=== PATIENT | female | born 1995 | race African-American/Black ===

== ENCOUNTER 2024-05-16 10:13 | Emergency (ER) | payer OTHER ==
[~2024-05-16] VITALS: Ht 170.2 cm; Wt 141.0 kg
[2024-05-16 10:28] VITALS: O2SAT 100
[2024-05-16 10:33] VITALS: TEMP 98.7; O2SAT 98
[2024-05-16] MEDS ORDERED: MORPHINE SULFATE 4 MG/ML INJ (FOR IV/IM USE) IV STA (11:22)
[2024-05-16] MEDS ORDERED: ONDANSETRON HCL 4MG/2ML INJ IV STA (11:22)
[2024-05-16] MEDS: SODIUM CHLORIDE 0.9% 1,000 ML IV ONE (11:30)
[2024-05-16 12:34] LABS: BASOPHILS % 0.2 % (0.0-2.0); EOSINOPHILS % 0.8 % (0.0-5.0); HEMATOCRIT. 36.6 % (36.0-48.0); HEMOGLOBIN. 11.7 g/dL (12.0-16.0); LYMPHOCYTES % 21.9 % (20.0-50.0); MEAN CORPUSCULAR HEMOGLOBIN 26.2 pg (28.0-32.0); MEAN CORPUSCULAR HGB CONC 32.1 g/dL (31.0-37.0); MEAN CORPUSCULAR VOLUME 81.7 fL (81.0-99.0); MEAN PLATELET VOLUME 7.6 fl (7.4-10.4); MONOCYTES % 8.3 % (2.0-8.0); NEUTROPHILS % 68.8 % (40.0-76.0); PLATELET 363 x1000/uL (130-400); RED BLOOD CELL COUNT 4.48 mill/uL (4.2-5.4); WHITE BLOOD COUNT 3.6 x1000/uL (4.5-11.0)
[2024-05-16 12:41] LABS: HCG SCREEN NEGATIVE
[2024-05-16 12:42] LABS: CHLORIDE 108 mEq/L (98-107); POTASSIUM 3.9 mEq/L (3.5-5.1); SODIUM 138 mEq/L (136-145)
[2024-05-16 12:43] LABS: CALCIUM 8.4 mg/dL (8.7-10.4); CARBON DIOXIDE 26 mEq/L (21-32)
[2024-05-16 12:48] LABS: CREATININE 0.7 mg/dL (0.6-1.0); GLUCOSE 93 mg/dL (70-105)
[2024-05-16 12:49] LABS: ALANINE AMINOTRANSFERASE 39 IU/L (10-49)
[2024-05-16 12:50] LABS: ASPARTATE AMINOTRANSFERASE 25 IU/L (<34); BILIRUBIN DIRECT 0.1 mg/dL (<=3.0); BILIRUBIN TOTAL 0.4 mg/dL (0.1-1.0); PROTEIN TOTAL 7.3 g/dL (6.0-8.3)
[2024-05-16 13:36] LABS: UREA NITROGEN BLOOD < 5 mg/dL (9-23)
[2024-05-16 13:58] VITALS: BP 161/107; PULSE 97; RESP 16
[2024-05-16] MEDS: MORPHINE SULFATE 4 MG/ML INJ (FOR IV/IM USE) IV NR (13:58)
[2024-05-16] MEDS: ONDANSETRON HCL 4MG/2ML INJ IV NR (13:58)
[2024-05-16 15:49] LABS: CLARITY URINE CLEAR (CLEAR); COLOR URINE YELLOW (YELLOW); GLUCOSE URINE NEGATIVE (NEGATIVE); KETONES URINE NEGATIVE (NEGATIVE); LEUKOCYTE ESTERASE URINE NEGATIVE (NEGATIVE); NITRITE URINE NEGATIVE (NEGATIVE); OCCULT BLOOD URINE NEGATIVE (NEGATIVE); PH URINE 6.5 (4.5-8.0); PROTEIN URINE NEGATIVE (NEGATIVE); SPECIFIC GRAVITY URINE 1.046 (1.005-1.030); UROBILINOGEN URINE 0.2 E.U./dL (0.2-1.0)
[2024-05-16] MEDS ORDERED: IOHEXOL-300 100 ML BOTTLE ONE (16:02)
[2024-05-16] MEDS ORDERED: IBUP-2028 MT (16:06)
[2024-05-16] MEDS ORDERED: ONDA4TAB50 MT (16:06)
== END 2024-05-16 16:47 | disposition home or self-care (01) ==
LOC: ER 10:13
DX: B34.9 Viral infection, unspecified (principal); Z20.822 Contact with and (suspected) exposure to COVID-19
CPT/HCPCS: 80076; 80048; 81003; 84703; 83605; 83690; 85025; 36415; 74177; 93005; 96361; 96374; 96375; 99285; 87426; Q9967; J2405; J2270; J7030; Z7610 ×2

== ENCOUNTER 2025-01-10 13:12 | Emergency (ER) | payer OTHER ==
[~2025-01-10] VITALS: Ht 172.7 cm; Wt 130.0 kg
[~2025-01-10 13:12] MED LIST: IBUP-2028 MT; ONDA4TAB50 MT
[2025-01-10 13:17] VITALS: O2SAT 99
[2025-01-10 13:20] VITALS: TEMP 37; O2SAT 99
[2025-01-10 15:46] VITALS: BP 130/81; PULSE 82; RESP 17
[2025-01-10] MEDS: KETOROLAC 30MG/ML VIAL IM STA (15:46)
[2025-01-10 16:38] LABS: HCG SCREEN NEGATIVE
== END 2025-01-10 17:50 | disposition home or self-care (01) ==
LOC: ER 13:12
DX: M54.50 Low back pain, unspecified (principal)
CPT/HCPCS: 99285; 72131; 81025; 84703; 96372; J1885

== ENCOUNTER 2025-02-13 17:43 | Emergency (ER) | payer OTHER ==
[~2025-02-13] VITALS: Ht 167.6 cm; Wt 154.2 kg
[2025-02-13 17:44] VITALS: O2SAT 100
[2025-02-13 17:54] VITALS: BP 147/95; PULSE 85; RESP 14; TEMP 36.8; O2SAT 99
[2025-02-13] MEDS: DEXAMETHASONE 10 MG/ML VIAL IM ONE (18:50)
[2025-02-13] MEDS: IBUPROFEN 800MG TABLET PO ONE (18:50)
[2025-02-13] MEDS ORDERED: BENZ100C86 MT (19:59)
[2025-02-13] MEDS ORDERED: BENZ1LOZ73 MT (19:59)
[2025-02-13] MEDS ORDERED: P50 MT (19:59)
[2025-02-13] MEDS ORDERED: IBUP-2029 MT (19:59)
== END 2025-02-13 20:57 | disposition home or self-care (01) ==
LOC: ER 17:43
DX: B34.9 Viral infection, unspecified (principal); J45.909 Unspecified asthma, uncomplicated; Z79.899 Other long term (current) drug therapy
CPT/HCPCS: 99284; 71045; 81025; 87430; 87070; 96372; J1100

== ENCOUNTER 2025-02-25 17:07 | Emergency (ER) | payer OTHER ==
[~2025-02-25] VITALS: Ht 170.2 cm; Wt 140.0 kg
[~2025-02-25 17:07] MED LIST changes: +BENZ100C86 MT; +BENZ1LOZ73 MT; +IBUP-2029 MT; +P50 MT
[2025-02-25 17:12] VITALS: O2SAT 18
[2025-02-25] MEDS: DEXAMETHASONE 10 MG/ML VIAL PO ONE (20:06)
[2025-02-25] MEDS ORDERED: GUAI-450 MT (21:24)
[2025-02-25] MEDS ORDERED: AMOX-494 MT (21:24)
[2025-02-25 21:25] LABS: INFLUENZA TYPE A Presumptive Negative (Pres. Neg.)
[2025-02-25 21:26] LABS: INFLUENZA TYPE B Presumptive Negative (Pres. Neg.)
[2025-02-25 21:27] LABS: RESPIRATORY SYNCYTIAL VIRUS Not Detected (Not Detectd)
[2025-02-25 22:17] VITALS: BP 137/83; PULSE 93; RESP 18; TEMP 37.1; O2SAT 97
== END 2025-02-25 22:18 | disposition home or self-care (01) ==
LOC: ER 17:07
DX: U07.1 COVID-19 (principal); H66.90 Otitis media, unspecified, unspecified ear; J45.909 Unspecified asthma, uncomplicated; Z79.899 Other long term (current) drug therapy
CPT/HCPCS: 81025; 87430; 87420; 87070; 87804 ×2; 71045; 99284; 87426; J1100; Z7610 ×3